=== PATIENT | female | born 1945 | race Caucasian/White ===

== ENCOUNTER 2018-10-18 15:28 | Emergency (ER) | payer MEDICARE ==
[~2018-10-18] VITALS: Ht 175.3 cm; Wt 79.4 kg
--- OUTSIDE RECORDS SUMMARY | 2018-10-18 15:34 | XMS REPORT | Summary of Care ---
Author Author [facility] [place] Organization [facility] [place] Address Unknown Phone Unavailable Encounter HQ Dawsonntr_zenon(FIN) [id number] Date(s): 01/11/17 - 01/11/17 [facility] [place] [address] [place] [phone] Discharge Disposition: Home or Self Care Attending Physician: Steven Dumont MD Vital Signs No data available for this section Problem List No data available for this section Allergies, Adverse Reactions, Alerts No data available for this section Medications No data available for this section Results No data available for this section Immunizations No data available for this section Procedures No data available for this section Social History No data available for this section Assessment and Plan No data available for this section
--- OUTSIDE RECORDS SUMMARY | 2018-10-18 15:34 | XMS REPORT | Summary of Care ---
Author Author [facility] [place] Organization [facility] [place] Address Unknown Phone Unavailable Encounter HQ Dawsonntr_zenon(FIN) [id number] Date(s): 01/07/16 - 01/07/16 [facility] [place] [address] [place], [place] [address] [phone] Discharge Disposition: Home Attending Physician: Steven Dumont MD Vital Signs [...]
--- OUTSIDE RECORDS SUMMARY | 2018-10-18 15:34 | XMS REPORT | Continuity of Care Document ---
Author Author [facility] Interface Address Unknown Phone Unavailable Problems Problem Status Onset Date Classification Date Reported Comments Source Encounter for screening mammogram for malignant neoplasm of breast 01/15/2018 04/21/2018 [facility] [place] Z12.31 - ENCNTR SCREEN MAMMOGRAM FOR MA Active 12/21/2015 [facility] [place] Medications Medication Details Route Status Patient Instructions Ordering Provider Order Date Source Allergies, Adverse Reactions, Alerts Substance Category Reaction Severity Reaction type Status Date Reported Comments Source Immunizations Immunization Date Given Site Status Last Updated Comments Source Results Order Name Results Value Reference Range Date Interpretation Comments Source Bone Density DXA [employer] MA Bone Density DXA [employer] MA BONE DENSITY ASSESSMENT: 06/30/2018 CLINICAL DATA: Post menopausal and clinical risk for osteoporosis. /Post Menopausal RISK FACTORS: race. FINDINGS: Bone density evaluation was performed 06/30/2018 on the right femur neck using a Hologic unit. The BMD average for the exam is 0.688 g/cm2. The T-score is -1.50 and the Z-score is 0.40. This matches the World Health Organization's criteria for osteopenia and places the patient at a medium risk for fracture. An additional bone density evaluation was performed 06/30/2018 on the left femur neck using a Hologic unit. The BMD average for the exam is 0.651 g/cm2. The T- score is -1.80 and the Z-score is 0.10. This matches the World Health Organization's criteria for osteopenia and places the patient at a medium risk for fracture. An additional bone density evaluation was performed 06/30/2018 on the right hip using a Hologic unit. The BMD average for the exam is 0.746 g/cm2. The T-score is -1.60. This matches the World Health Organization's criteria for osteopenia and places the patient at a medium risk for fracture. An additional bone density evaluation was performed 06/30/2018 on the left hip using a Hologic unit. The BMD average for the exam is 0.752 g/cm2. The T-score is -1.60. This matches the World Health Organization's criteria for osteopenia and places the patient at a medium risk for fracture. An additional bone density evaluation was performed 06/30/2018 on the AP L1-L4 region of spine using a Hologic unit. The BMD average for the exam is 0.940 g/cm2. The T-score is -1.00 and the Z-score is 1.20. This matches the World Health Organization's criteria for normal bone density and places the patient within normal limits of fracture risk. FRAX 10 year probability of major osteoporotic fracture is 11% and hip fracture is 1.9%. IMPRESSION: OSTEOPENIA Patient is at medium risk for fracture. Patient consult w/primary care provider is recommended. This exam was interpreted at [id number] for LINDA Goss 15. Joan Barahona M.D. ms/penrad:06/30/2018 09:38:04 Medical Billing And Coding Instructor(s): Anh ORTEZ(R)(M), [facility] 06/30/2018 - - Read by: Joan Barahona MD Dictated Date/time: 06/30/18 09:38 Electronically Signed by: Joan Barahona MD 06/30/18 09:38 FINAL REPORT CAROL ANN [place] Breast Mammo Scrn [place] incl CAD MA Breast Mammo Scrn [place] incl CAD MA BILATERAL DIGITAL SCREENING MAMMOGRAM WITH CAD: 01/13/2018 CLINICAL: Routine/Screening. Current study was evaluated with a Computer Aided Detection (CAD) system. COMPARISON:Comparison is made to exams dated: 01/11/2017 mammogram, 01/07/2016 mammogram, 01/05/2014 mammogram, 01/01/2013 mammogram - [facility], 01/01/2013 mammogram, and 01/21/2012 mammogram - [facility]. TECHNIQUE: Mammographic views were obtained using digital acquisition. Current study was also evaluated with a Computer Aided Detection (CAD) system. FINDINGS: The tissue of both breasts is almost entirely fat. There are benign calcifications in both breasts. There also are post operative findings in the right breast. No significant masses, calcifications, or other findings are seen in either breast. There has been no significant interval change. IMPRESSION: BENIGN RECOMMENDATION:There is no mammographic evidence of malignancy. A 1 year screening mammogram is recommended.(01/14/2019) This exam was interpreted at [id number] for RL Clayton. Professional services are provided by the [facility] Division of Diagnostic Imaging. Dimas Gil M.D. /penrad:01/13/2018 16:16:07 Medical Billing And Coding Instructor(s): Laura Allen, RT(R)(M), [facility] letter sent: BI-RADS 1/2 Mammogram BI-RADS: 2 Benign 01/13/2018 - - Read by: Zach Gonzalez MD Dictated Date/time: 01/13/18 16:16 Electronically Signed by: Zach Gonzalez MD 01/13/18 16:16 FINAL REPORT CAROL ANN [place] Breast Mammo Scrn [place] incl CAD MA Breast Mammo Scrn [place] incl CAD MA - BREAST MAMMO SCRN [place] INCL CAD MA BILATERAL DIGITAL SCREENING MAMMOGRAM WITH CAD: 01/11/2017 CLINICAL: Routine. Current study was evaluated with a Computer Aided Detection (CAD) system. Comparison is made to exams dated: 01/07/2016 mammogram, 01/05/2014 mammogram and 01/01/2013 mammogram - [facility]. The tissue of both breasts is almost entirely fat. There are benign calcifications in both breasts. There also are post operative findings in the right breast. No significant masses, calcifications, or other findings are seen in either breast. There has been no significant interval change. IMPRESSION: BENIGN There is no mammographic evidence of malignancy. A 1 year screening mammogram is recommended. Professional services are provided by the [facility] Division of Diagnostic Imaging. Sosa Savage M.D. /penrad:01/11/2017 16:41:04 Medical Billing And Coding Instructor: Laura Allen RT(R)(M), [facility] This exam was dictated and interpreted by [id number] at [facility] [place]. letter sent: Bilateral Benign Mammogram BI-RADS: 2 Benign 01/11/2017 - - Read by: Sosa Savage MD Dictated Date/time: 01/11/17 16:41 Electronically Signed by: Sosa Savage MD 01/11/17 16:41 FINAL REPORT RL [place] Digital Mammo Screening [place] MA Digital Mammo Screening [place] MA - DIGITAL MAMMO SCREENING [place] MA BILATERAL DIGITAL SCREENING MAMMOGRAM WITH CAD: 01/07/2016 CLINICAL: Screening. Current study was evaluated with a Computer Aided Detection (CAD) system. Comparison is made to exams dated: 01/05/2014 mammogram, 01/01/2013 mammogram and 12/31/2011 mammogram - [facility]. The tissue of both breasts is almost entirely fat. There are benign calcifications in both breasts. There also are post operative findings in the right breast. No significant masses, calcifications, or other findings are seen in either breast. There has been no significant interval change. IMPRESSION: BENIGN There is no mammographic evidence of malignancy. A 1 year screening mammogram is recommended. Dimas Gil M.D. cm/penrad:01/09/2016 09:47:54 Medical Billing And Coding Instructor: Nishi ORTEZ(Alvin)(M), [facility] This exam was dictated and interpreted by [id number] for RL [place]. letter sent: Normal exam Mammogram BI-RADS: 2 Benign 01/07/2016 - - Read by: Zach Gonzalez MD Dictated Date/time: 01/09/16 09:47 Electronically Signed by: Zach Gonzalez MD 01/09/16 09:47 FINAL REPORT RL [place] Breast w/wo contrast bilat MRI Breast w/wo contrast bilat MRI - BREAST W/WO CONTRAST BILAT MRI BREAST MRI OF BOTH BREASTS : 08/30/2014 CLINICAL: Breast Cancer. Comparison is made to exams dated: 01/05/2014 mammogram, 01/01/2013 mammogram - [facility], 01/01/2013 mammogram, 01/21/2012 ultrasound, 01/21/2012 mammogram and 12/31/2011 mammogram - [facility]. Informed consent was obtained from the patient. Gadolinium contrast calibrated to patient weight was injected. Axial T1 and T2 and sagittal T1 images were obtained at 3 mm intervals and at 3 mm sagittal intervals with a dedicated breast coil. Post processing was performed including 3D multiplanar reconstruction. Exam was performed for evaluation of the breasts only. Although the field of view includes portions of the chest, thoracic spine and the superior aspect of the abdomen, this exam is not diagnostic of these areas as it is not protocoled as such. These areas are masked by technical artifact and cardiac motion. The breast parenchyma is predominantly fatty. There is minimal background parenchymal enhancement bilaterally. The patient is status post right breast lumpectomy for breast cancer in 1988. No suspicious mass or area of abnormal enhancement is identified. There is no MRI correlate for the patient's breast pain. There are no abnormalities seen in the axillary nodes region or internal mammary nodes. IMPRESSION: BENIGN Clinical management of the patient breast pain is recommended. There is no MRI evidence of malignancy. Return to annual mammogram screening schedule is recommended. Elma Alonso M.D. Additional Observers: Taco Villa hh/:08/31/2014 10:37:23 Medical Billing And Coding Instructor: Mr. Nas Delong RT(R), [facility] Outpatient Imaging Department This exam was dictated and interpreted by [id number] for [facility]. letter sent: Bilateral Benign MRI BI-RADS: 2 Benign 08/27/2014 - - Read by: Elma Alonso MD PHD Dictated Date/time: 08/31/14 10:37 Electronically Signed by: Elma Alonso MD PHD 08/31/14 10:37 FINAL REPORT [facility] Digital Mammo Screening [place] MA Digital Mammo Screening [place] MA - DIGITAL MAMMO SCREENING [place] MA BILATERAL DIGITAL SCREENING MAMMOGRAM WITH CAD: 01/05/2014 CLINICAL: Routine. Current study was evaluated with a Computer Aided Detection (CAD) system. Comparison is made to exams dated: 11/29/2006 mammogram, 12/10/2007 mammogram, 12/13/2008 mammogram - [facility] and 01/01/2013 mammogram. There are scattered fibroglandular densities in both breasts. There are post operative findings in the right breast. No significant masses, calcifications, or other findings are seen in either breast. There has been no significant interval change. IMPRESSION: BENIGN There is no mammographic evidence of malignancy. A screening mammogram in one year is recommended. SUMMARY: The patient reported a history of breast pain on her intake questionaire. There is no mammographic correlate to the report symptom of pain in both breasts. Therefore, management of this symptom should be based on findings at clinical examination. Targeted sonography should be considered if the pain is clinically suspicious. *Yearly screening breast MRI should be considered in this patient with a prior history of breast malignancy*. Dr. Blaire Rick D.O. ht/penrad:01/05/2014 14:42:49 Medical Billing And Coding Instructor: Sonia ORTEZ (R)(Vick), [facility] This exam was dictated and interpreted by [id number] for Shiva Shields. letter sent: Normal exam Mammogram BI-RADS: 2 Benign 01/05/2014 - - Read by: Blaire Rick Dictated Date/time: 01/05/14 14:42 Electronically Signed by: Blaire Rick , DO 01/05/14 14:42 FINAL REPORT [facility] [place] Vital Signs Vital Sign Value Date Comments Source Encounters Location Location Details Encounter Type Encounter Number Reason For Visit Attending Provider ADM Date DC Date Status Source [facility] [place] Outpt Di[facility] Services [id number] [facility] 01/05/2014 01/06/2014 [facility] [place] [facility] [place] Out[facility] [id number] [facility] 08/27/2014 08/28/2014 [facility] [place] [facility] [place] Outpt Di[facility] [id number] [facility] 01/07/2016 01/08/2016 [facility] [place] [facility] [place] Outpt Di[facility] [id number] [facility] 01/11/2017 01/12/2017 [facility] [place] [facility] [place] Outpt Di[facility] [id number] [facility] 01/13/2018 01/14/2018 [facility] [place] Procedures Procedure Code Date Perfomer Comments Source
--- OUTSIDE RECORDS SUMMARY | 2018-10-18 15:34 | XMS REPORT | Summary of Care ---
Author Organization Unknown Address Unknown Phone Unavailable Encounter HQ Ancelmor_zahrayonas([facility]) [id number] Date(s): 08/27/14 - 08/27/14 [facility] Outpatient Imaging [address] Discharge Disposition: Home Physician Attending: Steven Dumont MD Reason for Visit V10.3 - HX OF BREAST [place] Problem List No data available for this section Allergies, Adverse Reactions, Alerts No data available for this section Medications No data available for this section Medications Administered During Your Visit No data available for this section Immunizations No data available for this section
--- OUTSIDE RECORDS SUMMARY | 2018-10-18 15:34 | XMS REPORT | Summary of Care ---
Author Author [facility] [place] Organization [facility] [place] Address Unknown Phone Unavailable Encounter HQ Encntr_alias(FIN) [id number] Date(s): 01/13/18 - 01/13/18 [facility] [place] [address] [place] [address] 7 [phone] Encounter Diagnosis Encounter for screening mammogram for malignant neoplasm of breast (Final) - 01/14/18 Discharge Disposition: Home or Self Care Attending [...]
[2018-10-18] MEDS ORDERED: LOMOTIL TABLET1 EACH PO (16:00)
== END 2018-10-18 16:12 | disposition home or self-care (01) ==
LOC: FSED 15:28
DX: R19.7 Diarrhea, unspecified (principal); I10 Essential (primary) hypertension; E78.5 Hyperlipidemia, unspecified; K21.9 Gastro-esophageal reflux disease without esophagitis; Z85.3 Personal history of malignant neoplasm of breast
CPT/HCPCS: 81003; 99283